=== PATIENT | female | born 1975 | race African-American/Black ===

== ENCOUNTER 2025-08-25 17:00 | Emergency (ER) | payer OTHER, SELFPAY ==
--- NOTE | ~2025-08-25 | XR_ITS ---
EXAMINATION: XR chest 2V DATE: 08/25/2025 20:02 INDICATION: Left Sided chest pain. TECHNIQUE: Frontal and lateral views of the chest were obtained. COMPARISON: Chest x-ray 07/23/2023 FINDINGS: Heart size is normal. Lungs are clear of acute processes. IMPRESSION: 1. No acute cardiopulmonary findings. Atherosclerotic aorta. Reviewed, dictated and finalized at location T. MACHINE OPERATOR
--- NOTE | ~2025-08-25 | US_ITS ---
EXAMINATION: US venous doppler [facility] DATE: 08/25/2025 18:30 INDICATION: Pain and swelling. TECHNIQUE: Grayscale ultrasound images without and with compression and Doppler ultrasound images of the left lower extremity veins were obtained. COMPARISON: None. FINDINGS: The visualized portions of left common femoral vein, profunda (deep) femoral vein, femoral vein, popliteal vein, peroneal veins, posterior tibial veins, and greater saphenous vein outflow are patent. IMPRESSION: 1. No deep venous thrombosis in the left lower extremity. Reviewed, dictated and finalized at location T. ION COORDINATOR
[2025-08-25 17:37] VITALS: BP 159/96; PULSE 72; RESP 20; TEMP 36.4; O2SAT 96
--- NOTE | 2025-08-25 18:03 | ED.GENADULT ---
HPI - General Adult General Chief complaint: Back Pain/Injury <Mayuri Reynolds PA-C - Last Filed: 08/25/25 18:11> Stated complaint: DVT?/left leg pain <Mayuri Reynolds PA-C - Last Filed: 08/25/25 18:11> Time Seen by Provider: 08/25/25 18:05 <Mayuri Reynolds PA-C - Last Filed: 08/25/25 18:11> Focused HPI: Patient is a 50-year-old female who presents to the ED with report of left-sided abdominal pain, left lower extremity pain. Patient reports she began having pain throughout her left calf yesterday. Was seen at [facility] today to be evaluated for possible blood clots. She states the ultrasound was inconclusive. They performed a blood test and was told she was negative for blood clots. She then began having pain throughout her left-sided lateral abdomen this afternoon. States pain has been persistent. Denies nausea, vomiting, diarrhea, constipation, fevers. Denies dysuria. Does report having slight hematuria versus vaginal bleeding with wiping over the past couple of days. GENERAL: Well-appearing, morbidly obese with BMI of 53.0, and in no acute distress. HEAD: Normocephalic, atraumatic. CHEST: Clear to auscultation. ?No respiratory distress. HEART: Regular rate and rhythm.? ABD: Mild TTP throughout L lateral upper abdomen. NEURO: ?Alert and oriented x3. Patient screened in triage and initial orders placed.? ?Additional care and disposition to be based upon?diagnostic testing and treatment. <Mayuri Reynolds PA-C - Last Filed: 08/25/25 18:11> Source: patient <Mayuri Reynolds PA-C - Last Filed: 08/25/25 18:11> Mode of arrival: ambulatory <Mayuri Reynolds PA-C - Last Filed: 08/25/25 18:11> Limitations: no limitations <Mayuri Reynolds PA-C - Last Filed: 08/25/25 18:11> History of Present Illness HPI narrative: I agree with the above HPI <Jcarlos Bazan MD - Last Filed: 08/26/25 03:01> Related Data Allergies/adverse reactions: Allergies Allergy/AdvReac Type Severity Reaction Status Date / Time No Known Allergies Allergy Verified 08/25/25 19:43 <Mayuri Reynolds PA-C - Last Filed: 08/25/25 18:11> Review of Systems Review of Systems: All systems reviewed & are unremarkable except as noted in HPI and below <Jcarlos Bazan MD - Last Filed: 08/26/25 03:01> Exam Narrative: APPEARANCE: Well appearing, no pain, no distress, well-nourished. HEAD: normocephalic, atraumatic. EYES: PERRLA/EOMI, conjunctivae clear. NOSE: Normal no drainage EARS:TMS clear with good light reflex. THROAT: Pharynx clear, no exudate. NECK: Supple. No adenopathy, no masses. RESPIRATORY: Airway patent, respirations nonlabored. Clear to auscultation bilaterally, no rales, rhonchi, wheezing. CARDIOVASCULAR: Regular rate and rhythm without murmurs rubs or gallops. ABDOMINAL: no left-sided abdominal tenderness to palpation, normal bowel sounds, no rebound or guarding MUSCULOSKELETAL: left lower rib tenderness to palpation NEURO: Alert. Cranial nerves II through XII intact. Good gait. Good coordination SKIN: Warm, dry. Normal Color <Jcarlos Bazan MD - Last Filed: 08/26/25 03:01> Course Vital Signs Vital signs: Vital Signs Temperature 97.5 F L 08/25/25 17:37 Pulse Rate 72 08/25/25 17:37 Respiratory Rate 20 08/25/25 17:37 Blood Pressure 159/96 H 08/25/25 17:37 Pulse Oximetry 96 08/25/25 17:37 Oxygen Delivery Room Air 08/25/25 17:37 Temperature 97.5 F L 08/25/25 17:37 Pulse Rate 86 08/25/25 21:09 Respiratory Rate 20 08/25/25 21:09 Blood Pressure 148/91 H 08/25/25 21:09 Pulse Oximetry 100 08/25/25 21:09 Oxygen Delivery Room Air 08/25/25 17:37 <Mayuri Reynolds PA-C - Last Filed: 08/25/25 18:11> Vital Signs Temperature 97.5 F L 08/25/25 17:37 Pulse Rate 72 08/25/25 17:37 Respiratory Rate 20 08/25/25 17:37 Blood Pressure 159/96 H 08/25/25 17:37 Pulse Oximetry 96 08/25/25 17:37 Oxygen Delivery Room Air 08/25/25 17:37 Temperature 97.5 F L 08/25/25 17:37 Pulse Rate 86 08/25/25 21:09 Respiratory Rate 20 08/25/25 21:09 Blood Pressure 148/91 H 08/25/25 21:09 Pulse Oximetry 100 08/25/25 21:09 Oxygen Delivery Room Air 08/25/25 17:37 <Jcarlos Bazan MD - Last Filed: 08/26/25 03:01> [employer] Narrative Medical decision making narrative: MSE by VICKEY in triage <Mayuri Reynolds PA-C - Last Filed: 08/25/25 18:11> MSE by VICKEY in triage 50-year-old female presents to the emergency department for evaluation for left-sided flank pain. Patient does have reproducible tenderness over the left lateral anterior ribs. Patient is currently afebrile with leukocytosis hemoglobin of 13.4. Patient did have a repeat ultrasound of her lower extremity this was negative for DVT. Patient states early she did take some muscle relaxant and this resolved her left-sided pain. Patient was willing to address anti-inflammatories she was treated with 15 mg IV Toradol. Suspect musculoskeletal etiology. Chest x-ray shows no acute cardiopulmonary abnormality. UA was negative for infection or hematuria, low concern for ureteral calculi. Patient has no significant abnormalities on her CMP and patient has no leukocytosis. Low concern for colitis, gastritis, diverticulitis. Do suspect muscular all the skilled etiology for symptoms. Patient was provided naproxen and patient does have whole muscle relaxants. <Jcarlos Bazan MD - Last Filed: 08/26/25 03:01> Differential Diagnosis Differential Diagnosis: Urinary tract infection, renal calculi, rib fracture, rib contusion, pneumonia, DVT <Jcarlos Bazan MD - Last Filed: 08/26/25 03:01> Lab Data [facility] Lab Attestation statement: I personally reviewed the patient's lab results. <Jcarlos Bazan MD - Last Filed: 08/26/25 03:01> Result diagrams: 08/25/25 19:12 08/25/25 19:12 <Mayuri Reynolds PA-C - Last Filed: 08/25/25 18:11> Labs: Lab Results 08/25/25 Range/Units 19:12 WBC 5.7 (4.5-10.0) K/mm3 RBC 5.21 (4.2-5.4) M/mm3 Hgb 13.4 (12.0-15.0) g/dL Hct 40.0 (37.0-47.0) % MCV 76.8 L (80-100) fl MCH 25.7 L (26-34) pg MCHC 33.5 (32-36) g/dl RDW 14.1 (11.5-14.5) % Plt Count 247 (150-375) k/mm3 MPV 10.4 (7.4-10.4) fl Immature Gran % (Auto) 0.2 (0-0.5) % Neut % (Auto) 52.8 (45.5-73.1) % Lymph % (Auto) 36.2 (18.3-44.2) % Cocke % (Auto) 8.0 (2.6-8.5) % Eos % (Auto) 2.3 (0-4.4) % Baso % (Auto) 0.5 (0.2-1.2) % Lymph # (Auto) 2.07 (0.9-3.2) K/mm3 Cocke # (Auto) 0.5 (0.1-0.6) K/mm3 Eos # (Auto) 0.1 (0-0.3) K/mm3 Baso # (Auto) 0.0 (0.0-0.1) K/mm3 Abs Immat Gran (auto) 0.01 (0.00-0.031) K/mm3 Absolute Neuts (auto) 3.0 (1.3-6.7) K/mm3 Absolute Nucleated RBC 0.000 (0.0-0.012) K/mm3 Nucleated RBC % 0.0 (0.0-0.2) % Sodium 137 (137-145) mmol/L Potassium 3.6 (3.4-5.0) mmol/L Chloride 105 (98-107) mmol/L Carbon Dioxide 28 (22-30) mmol/L Anion Gap 4 (4-12) mmol/L BUN 10 (7-17) mg/dL Creatinine 0.72 (0.7-1.0) mg/dL Estim Creat Clear Calc Not Reportable Estimated GFR > 60 (59 - ) Glucose 87 (65-110) mg/dL Calcium 9.2 (8.4-10.2) mg/dL Total Bilirubin 0.8 (0.2-1.3) mg/dL AST 40 H (14-36) U/L ALT 65 H (6-35) U/L Alkaline Phosphatase 84 (38-126) U/L Total Protein 7.6 (6.3-8.2) g/dL Albumin 4.0 (3.5-5.1) g/dL Lipase 45 (23-300) U/L Urine Color Yellow (Yellow) Urine Appearance Clear (Clear) Urine pH 5.5 (5.0-9.0) Ur Specific [place] 1.022 (1.001-1.035) Urine Protein Negative (Negative) mg/dL Urine Glucose (UA) Negative (Negative) mg/dL Urine Ketones Negative (Negative) mg/dL Ur Blood (Man) Negative (Negative) Urine Nitrate Negative (Negative) Urine Bilirubin Negative (Negative) Urine Urobilinogen 0.2 (<2.0) mg/dL Leukocyte Esterase Rfl Negative (Negative) BRANDON/UL <Mayuri Reynolds PA-C - Last Filed: 08/25/25 18:11> Lab Results 08/25/25 Range/Units 19:12 WBC 5.7 (4.5-10.0) K/mm3 RBC 5.21 (4.2-5.4) M/mm3 Hgb 13.4 (12.0-15.0) g/dL Hct 40.0 (37.0-47.0) % MCV 76.8 L (80-100) fl MCH 25.7 L (26-34) pg MCHC 33.5 (32-36) g/dl RDW 14.1 (11.5-14.5) % Plt Count 247 (150-375) k/mm3 MPV 10.4 (7.4-10.4) fl Immature Gran % (Auto) 0.2 (0-0.5) % Neut % (Auto) 52.8 (45.5-73.1) % Lymph % (Auto) 36.2 (18.3-44.2) % [place] % (Auto) 8.0 (2.6-8.5) % Eos % (Auto) 2.3 (0-4.4) % Baso % (Auto) 0.5 (0.2-1.2) % Lymph # (Auto) 2.07 (0.9-3.2) K/mm3 [place] # (Auto) 0.5 (0.1-0.6) K/mm3 Eos # (Auto) 0.1 (0-0.3) K/mm3 Baso # (Auto) 0.0 (0.0-0.1) K/mm3 Abs Immat Gran (auto) 0.01 (0.00-0.031) K/mm3 Absolute Neuts (auto) 3.0 (1.3-6.7) K/mm3 Absolute Nucleated RBC 0.000 (0.0-0.012) K/mm3 Nucleated RBC % 0.0 (0.0-0.2) % Sodium 137 (137-145) mmol/L Potassium 3.6 (3.4-5.0) mmol/L Chloride 105 (98-107) mmol/L Carbon Dioxide 28 (22-30) mmol/L Anion Gap 4 (4-12) mmol/L BUN 10 (7-17) mg/dL Creatinine 0.72 (0.7-1.0) mg/dL Estim Creat Clear Calc Not Reportable Estimated GFR > 60 (59 - ) Glucose 87 (65-110) mg/dL Calcium 9.2 (8.4-10.2) mg/dL Total Bilirubin 0.8 (0.2-1.3) mg/dL AST 40 H (14-36) U/L ALT 65 H (6-35) U/L Alkaline Phosphatase 84 (38-126) U/L Total Protein 7.6 (6.3-8.2) g/dL Albumin 4.0 (3.5-5.1) g/dL Lipase 45 (23-300) U/L Urine Color Yellow (Yellow) Urine Appearance Clear (Clear) Urine pH 5.5 (5.0-9.0) Ur Specific [place] 1.022 (1.001-1.035) Urine Protein Negative (Negative) mg/dL Urine Glucose (UA) Negative (Negative) mg/dL Urine Ketones Negative (Negative) mg/dL Ur Blood (Man) Negative (Negative) Urine Nitrate Negative (Negative) Urine Bilirubin Negative (Negative) Urine Urobilinogen 0.2 (<2.0) mg/dL Leukocyte Esterase Rfl Negative (Negative) BRANDON/UL <Jcarlos Bazan MD - Last Filed: 08/26/25 03:01> Imaging Data Radiologist's impression: ITS Impressions Venous Doppler Study 08/25/25 18:35 IMPRESSION: 1. No deep venous thrombosis in the left lower extremity. Chest X-Ray 08/25/25 20:02 IMPRESSION: 1. No acute cardiopulmonary findings. Atherosclerotic aorta. <Mayuri Reynolds PA-C - Last Filed: 08/25/25 18:11> ITS Impressions Venous Doppler Study 08/25/25 18:35 IMPRESSION: 1. No deep venous thrombosis in the left lower extremity. Chest X-Ray 08/25/25 20:02 IMPRESSION: 1. No acute cardiopulmonary findings. Atherosclerotic aorta. <Jcarlos Bazan MD - Last Filed: 08/26/25 03:01> Discharge Plan Discharge Clinical Impression: Rib pain on left side <Mayuri Reynolds PA-C - Last Filed: 08/25/25 18:11> Patient Disposition: Home <Mayuri Reynolds PA-C - Last Filed: 08/25/25 18:11> Condition: Stable <Mayuri Reynolds PA-C - Last Filed: 08/25/25 18:11> Instructions: Antibiotic Form <Mayuri Reynolds PA-C - Last Filed: 08/25/25 18:11> Additional Instructions: Naprosyn for pain control as directed. Continue your home muscle relaxants as directed. Have close follow-up with your primary care physician. If you have any worsening symptoms then please call or return to the emergency department. <Mayuri Reynolds PA-C - Last Filed: 08/25/25 18:11> Patient Language: Tamazight <Mayuri Reynolds PA-C - Last Filed: 08/25/25 18:11> Prescriptions: New naproxen [Naprosyn] 500 mg tablet 500 mg PO BID 7 Days Qty: 14 0RF <Mayuri Reynolds PA-C - Last Filed: 08/25/25 18:11> Follow-up/Referrals: PHYSICIAN NOT ON STAFF,NONSTAFF [Non-Staff] <Mayuri Reynolds PA-C - Last Filed: 08/25/25 18:11> Stand Alone Forms: Work/School Release IP <Mayuri Reynolds PA-C - Last Filed: 08/25/25 18:11>
--- NOTE | 2025-08-25 18:21 | PC.NURSE ---
patient taken to ultrasound prior to being called back for lab work
[2025-08-25 19:20] LABS: Hematocrit 40.0 % (37.0-47.0); Hemoglobin 13.4 g/dL (12.0-15.0); Immature Granulocyte Percent A 0.2 % (0-0.5); Lymphocytes Absolute Auto 2.07 K/mm3 (0.9-3.2); Mean Corpuscular HGB Conc 33.5 g/dl (32-36); Mean Corpuscular Hemoglobin 25.7 pg (26-34); Mean Corpuscular Volume 76.8 fl (80-100); Nucleated Red Blood Cells Absolute Auto 0.000 K/mm3 (0.0-0.012); Nucleated Red Blood Cells Perc 0.0 % (0.0-0.2); Platelet Count Result 247 k/mm3 (150-375); Red Blood Count 5.21 M/mm3 (4.2-5.4); White Blood Count 5.7 K/mm3 (4.5-10.0)
[2025-08-25 19:21] LABS: Add Urine Microscopic? NO; Appearance Urine Clear (Clear); Glucose Urine UA Negative (Negative); Leukocyte Esterase Ur Negative LEU/UL (Negative); Nitrate Urine Negative (Negative); Specific Grav Ur 1.022 (1.001-1.035)
[2025-08-25 19:32] LABS: Alanine Aminotransferase 65 U/L (6-35); Albumin Level 4.0 g/dL (3.5-5.1); Alkaline Phosphatase 84 U/L (38-126); Anion Gap 4 mmol/L (4-12); Aspartate Amino Transferase 40 U/L (14-36); Bilirubin,Total 0.8 mg/dL (0.2-1.3); Blood Urea Nitrogen 10 mg/dL (7-17); Calcium 9.2 mg/dL (8.4-10.2); Carbon Dioxide 28 mmol/L (22-30); Chloride 105 mmol/L (98-107); Estimated Glomerular Filt Rate > 60; Glucose 87 mg/dL (65-110); Lipase 45 U/L (23-300); Potassium 3.6 mmol/L (3.4-5.0); Sodium 137 mmol/L (137-145); Total Protein 7.6 g/dL (6.3-8.2)
[2025-08-25] MEDS: KETOROLAC 15 MG/ML VIAL (*BKC) IV PUSH (19:44)
[2025-08-25 21:09] VITALS: BP 148/91; PULSE 86; RESP 20; O2SAT 100
== END 2025-08-25 21:10 | disposition home or self-care (01) ==
PROVIDERS: Physician Assistant; Emergency Provider Emergency Medicine; PCP Physician Assistant
DX: R07.89 Other chest pain (principal); E66.01 Morbid (severe) obesity due to excess calories; Z68.43 Body mass index [BMI] 50.0-59.9, adult
CPT/HCPCS: 36415; 71046; 80053; 81003; 83690; 85025; 93971; 96374; 99284; J1885